=== PATIENT | female | born 1990 | race Caucasian/White ===

== ENCOUNTER 2017-08-29 20:03 | Outpatient (CLI) | payer OTHER ==
[2017-08-29 22:05] LABS: ADD UMIC NO; UR ASCORBIC ACID NEGATIVE (NEGATIVE); UR BILIRUBIN (Dip) NEGATIVE (NEGATIVE); UR BLOOD (Dip) NEGATIVE (NEGATIVE); UR CLARITY CLEAR (CLEAR); UR COLOR YELLOW (YELLOW); UR GLUCOSE (Dip) NEGATIVE (NEGATIVE); UR KETONES (Dip) NEGATIVE (NEGATIVE); UR LEUKOCYTE ESTERASE (Dip) NEGATIVE Leu/ul (NEGATIVE); UR NITRITE (Dip) NEGATIVE (NEGATIVE); UR SPECIFIC GRAVITY (Dip) 1.016 (1.003-1.030); UR TOTAL PROTEIN (Dip) NEGATIVE (NEGATIVE); UR UROBILINOGEN (Dip) NEGATIVE (NEGATIVE)
[2017-08-29 22:07] LABS: ADD MAN DIFF? NO
[2017-08-29 22:13] LABS: BASOPHILS % 0.2 % (0.0-2.0); EOSINOPHILS # 0.1 10^3/ul (0.0-0.5); HEMATOCRIT 35.4 % (37.0-47.0); LYMPHOCYTES # 2.1 10^3/ul (0.8-2.9); LYMPHOCYTES % 25.9 % (15.0-51.0); MEAN CORPUSCULAR HEMOGLOBIN 31.6 pg (29.0-33.0); MEAN CORPUSCULAR HGB CONC 33.9 g/dl (32.0-37.0); MEAN CORPUSCULAR VOLUME 93.2 fl (82.0-101.0); MEAN PLATELET VOLUME 9.8 fl (7.4-10.4); MONOCYTE # 0.6 10^3/ul (0.3-0.9); MONOCYTES % 7.5 % (0.0-11.0); NEUTROPHIL # 5.3 10^3/ul (1.6-7.5); NEUTROPHILS % 65.2 % (39.0-77.0); PLATELET COUNT 267 10^3/UL (140-415)
[2017-08-29 22:13] LABS: WHITE BLOOD COUNT 8.2 10^3/ul (4.8-10.8)
[2017-08-29 22:34] LABS: ALANINE AMINOTRANSFERASE 22 IU/L (13-69); ALBUMIN 3.5 g/dl (3.3-4.9); ALKALINE PHOSPHATASE 44 IU/L (42-121); ANION GAP 13 (8-16); ASPARTATE AMINO TRANSFERASE 18 IU/L (15-46); BILIRUBIN,INDIRECT 0.4 mg/dl (0-1.1); BILIRUBIN,TOTAL 0.4 mg/dl (0.2-1.3); BLOOD UREA NITROGEN 12 mg/dl (7-20); CARBON DIOXIDE 25 mmol/L (21-31); CHLORIDE 105 mmol/L (97-110); GLUCOSE 71 mg/dl (70-220); POTASSIUM 3.7 mmol/L (3.5-5.1); SODIUM 139 mmol/L (135-144); TOTAL PROTEIN 6.4 g/dl (6.1-8.1)
== END 2017-08-29 22:56 | disposition home or self-care (01) ==
LOC: OBT 20:03 → L-D 20:05 → OBT 22:56
DX: O60.02 Preterm labor without delivery, second trimester (principal); O32.1XX0 Maternal care for breech presentation, not applicable or unspecified; O43.122 Velamentous insertion of umbilical cord, second trimester; Z3A.22 22 weeks gestation of pregnancy
CPT/HCPCS: 76815; 76817; 80053; 81003; 85025

== ENCOUNTER 2017-12-31 00:35 | Inpatient (IN) | payer OTHER ==
[2017-12-31] MEDS ORDERED: OXYTOCIN 30 UNITS/LR 500 ML IV ×2 (02:30→22:30)
[2017-12-31] MEDS ORDERED: AMPICILLIN 2 GM/NS (PMX) 100 ML IV (02:30)
[2017-12-31] MEDS ORDERED: MISOPROSTOL 200 MCG TAB PR ×2 (02:30→22:30)
[2017-12-31] MEDS ORDERED: LIDOCAINE 1% (MPF) 30 ML INJ INJ (02:30)
[2017-12-31] MEDS ORDERED: METHYLERGONOVINE 0.2 MG INJ IM ×2 (02:30→22:30)
[2017-12-31] MEDS ORDERED: IBUPROFEN 600 MG TAB PO (02:30)
[2017-12-31] MEDS ORDERED: BUTORPHANOL 2 MG INJ IV (02:30)
[2017-12-31] MEDS ORDERED: CARBOPROST 250 MCG INJ IM ×2 (02:30→22:30)
[2017-12-31 02:37] LABS: ADD MAN DIFF? NO
[2017-12-31 02:40] LABS: WHITE BLOOD COUNT 11.6 10^3/ul (4.8-10.8)
[2017-12-31 02:40] LABS: BASOPHILS % 0.3 % (0.0-2.0); EOSINOPHILS # 0.1 10^3/ul (0.0-0.5); EOSINOPHILS % 0.9 % (0.0-7.0); HEMATOCRIT 37.6 % (37.0-47.0); HEMOGLOBIN 11.7 g/dl (12.0-16.0); LYMPHOCYTES # 2.1 10^3/ul (0.8-2.9); LYMPHOCYTES % 18.5 % (15.0-51.0); MEAN CORPUSCULAR HEMOGLOBIN 26.8 pg (29.0-33.0); MEAN CORPUSCULAR HGB CONC 31.1 g/dl (32.0-37.0); MEAN CORPUSCULAR VOLUME 86.2 fl (82.0-101.0); MEAN PLATELET VOLUME 11.1 fl (7.4-10.4); MONOCYTE # 0.7 10^3/ul (0.3-0.9); MONOCYTES % 6.1 % (0.0-11.0); NEUTROPHIL # 8.6 10^3/ul (1.6-7.5); NEUTROPHILS % 73.9 % (39.0-77.0); PLATELET COUNT 260 10^3/UL (140-415); RED BLOOD COUNT 4.36 10^6/ul (4.20-5.40); RED CELL DISTRIBUTION WIDTH 14.5 % (11.5-14.5)
[2017-12-31] MEDS: LACTATED RINGER'S 1,000 ML IV* ×4 (02:44→18:14)
[2017-12-31 02:59] LABS: INR 0.88; PT RATIO 0.9
[2017-12-31 03:00] LABS: PARTIAL THROMBOPLASTIN TIME 24.7 Sec (25.0-35.0)
[2017-12-31] MEDS: LACTATED RINGER'S 1,000 ML IV (04:14)
[2017-12-31 04:57] LABS: HEPATITIS B SURFACE ANTIGEN NEGATIVE (NEGATIVE)
[2017-12-31] MEDS ORDERED: FENTAnyl 2MCG/ML-ROPIV 0.2% 100 ML (04:57)
[2017-12-31] MEDS ORDERED: NALOXONE (0.4 MG/ML) INJ IV (05:30)
[2017-12-31] MEDS: FENTAnyl 2MCG/ML-ROPIV 0.2% 100 ML BAG EPI (05:33)
[2017-12-31] MEDS ORDERED: AMPICILLIN 1 GM/NS (PMX) 50 ML IV (06:30)
[2017-12-31] MEDS: OXYTOCIN 30 UNITS/LR 500 ML IV ×5 (10:29→22:29)
[2017-12-31] MEDS ORDERED: HYDROCODONE/APAP (5/325) TAB PO ×4 (15:30→22:30)
[2017-12-31] MEDS ORDERED: DIBUCAINE 1% 30 GM OINT PR ×2 (15:30→22:30)
[2017-12-31] MEDS ORDERED: OXYCODONE/ASPIRIN (4.88/325) TAB PO ×3 (15:30→22:30)
[2017-12-31] MEDS ORDERED: ACETAMINOPHEN 325 MG TAB PO ×2 (15:30→22:30)
[2017-12-31] MEDS ORDERED: ONDANSETRON 4 MG INJ IV ×2 (15:30→22:30)
[2017-12-31] MEDS: BENZOCAINE 20% 56 ML SPRAY TOP (15:53)
[2017-12-31] MEDS: WITCH HAZEL/GLYCERIN PAD PR (15:53)
[2017-12-31] MEDS: LANOLIN 7 GM TUBE TOP (15:53)
[2017-12-31 17:15] LABS: RAPID PLASMA REAGIN NONREACTIVE (NR)
[2017-12-31] MEDS: IBUPROFEN 600 MG TAB PO ×2 (17:25→23:23)
[2017-12-31] MEDS: SENNA/DOCUSATE NA (8.6MG/50MG) TAB PO (21:34)
[2017-12-31] MEDS ORDERED: NACL 0.9% 3 ML SYG IV (22:30)
[2017-12-31] MEDS ORDERED: MEASLES,MUMPS,RUBELLA VACCINE INJ SC* (23:00)
[2018-01-01] MEDS: IBUPROFEN 600 MG TAB PO ×4 (05:28→23:19)
[2018-01-01 08:20] LABS: ADD MAN DIFF? NO
[2018-01-01] MEDS: SENNA/DOCUSATE NA (8.6MG/50MG) TAB PO ×2 (08:22→21:01)
[2018-01-01 08:27] LABS: WHITE BLOOD COUNT 12.3 10^3/ul (4.8-10.8)
[2018-01-01 08:27] LABS: BASOPHILS % 0.2 % (0.0-2.0); EOSINOPHILS # 0.1 10^3/ul (0.0-0.5); EOSINOPHILS % 0.5 % (0.0-7.0); HEMATOCRIT 34.2 % (37.0-47.0); HEMOGLOBIN 10.4 g/dl (12.0-16.0); LYMPHOCYTES # 2.1 10^3/ul (0.8-2.9); LYMPHOCYTES % 16.9 % (15.0-51.0); MEAN CORPUSCULAR HEMOGLOBIN 26.3 pg (29.0-33.0); MEAN CORPUSCULAR HGB CONC 30.4 g/dl (32.0-37.0); MEAN CORPUSCULAR VOLUME 86.6 fl (82.0-101.0); MEAN PLATELET VOLUME 10.9 fl (7.4-10.4); MONOCYTE # 0.9 10^3/ul (0.3-0.9); MONOCYTES % 7.5 % (0.0-11.0); NEUTROPHIL # 9.2 10^3/ul (1.6-7.5); NEUTROPHILS % 74.5 % (39.0-77.0); PLATELET COUNT 240 10^3/UL (140-415); RED BLOOD COUNT 3.95 10^6/ul (4.20-5.40); RED CELL DISTRIBUTION WIDTH 14.8 % (11.5-14.5)
[2018-01-01] MEDS: WITCH HAZEL/GLYCERIN PAD PR (23:19)
[2018-01-01] MEDS: LANOLIN 7 GM TUBE TOP (23:19)
[2018-01-01] MEDS: BENZOCAINE 20% 56 ML SPRAY TOP (23:19)
[2018-01-02] MEDS: IBUPROFEN 600 MG TAB PO ×2 (05:39→12:12)
[2018-01-02] MEDS: SENNA/DOCUSATE NA (8.6MG/50MG) TAB PO (08:55)
[2018-01-02] MEDS ORDERED: MEASLES,MUMPS,RUBELLA VACCINE INJ SC* ×2 (09:00→12:00)
== END 2018-01-02 15:30 | disposition home or self-care (01) | DRG 775 ==
LOC: OBT 00:35 → L-D 00:35 → OBT 02:05 → L-D 02:05 → PP1 14:37
PROVIDERS: Obstetrics & Gynecology
PROC: 10E0XZZ Delivery of Products of Conception, External Approach (ICD-10-PCS; principal; 2017-12-31)
DX: O48.0 Post-term pregnancy (principal); Z37.0 Single live birth; Z3A.40 40 weeks gestation of pregnancy; O69.81X0 Labor and delivery complicated by cord around neck, without compression, not applicable or unspecified
CPT/HCPCS: 36415; 62319; 85025; 85610; 85730; 86592; 86850; 86900; 86901; 87340